=== PATIENT | male | born 1955 | race Native Hawaiian/Other Pacific Islander ===

== ENCOUNTER → 2020-09-12 | Outpatient (CLI) | payer BC ==
--- NOTE | 2020-09-12 13:38 | US ---
EXAMINATION TYPE: US prostate transrectal DATE OF EXAM: 09/12/2020 COMPARISON: NONE CLINICAL HISTORY: R97.2 elevated psa. PSA 7.2ng/ml This examination was performed using the transrectal probe. EXAM MEASUREMENTS: Gland Size: 4.5 x 4.4 x 3.8cm Volume: 40.1ml Predicted PSA: 4.82ng/ml Actual PSA (if available):7.2ng/ml Seminal vesicles slightly bulky on initial images. Heterogeneous enlarged prostate is confirmed. Some tiny cysts noted centrally. No definitive suspicious hypoechoic and/or hypervascular nodule. IMPRESSION: Slightly enlarged prostate gland. No suspicious nodule. Consider prostate MRI and/or ult rasound guided random sampling due to disproportionate actual PSA versus predicted PSA. Predicted PSA = volume x 0.12 ng/ml Calculated Volume = 0.5236 x L x W x H
== END | disposition home or self-care (01) ==
LOC: RADUSWWP 08:10
PROVIDERS: ATTEND Internal Medicine
DX: N40.0 Benign prostatic hyperplasia without lower urinary tract symptoms (principal)
CPT/HCPCS: 76872

== ENCOUNTER → 2020-12-27 | Outpatient (CLI) | payer BC | END | disposition home or self-care (01) | LOC: LABWHC1 11:03 | PROVIDERS: ATTEND Urology | DX: Z01.818 Encounter for other preprocedural examination (principal); C61 Malignant neoplasm of prostate; E11.9 Type 2 diabetes mellitus without complications; I10 Essential (primary) hypertension | CPT/HCPCS: 36415; 86850; 86900; 86901 ==

== ENCOUNTER 2021-01-03 10:25 | Observation (INO) | payer BC ==
[2020-12-27 14:54] VITALS: BMI 28.1
--- NOTE | 2021-01-02 19:33 | P.GSHP ---
History of Present Illness H&P Date: 12/20/20 Chief Complaint: Prostate cancer The patient is a 65-year-old white male evaluated for a rising PSA level. He reports mild obstructive voiding symptoms. His most recent PSA level was 7.2 in August 2020. SHARON revealed an a nodular prostate. He underwent a prostate ultrasound with biopsies. The prostate volume was 28 mL. 4 of 12 biopsies showed [place] 7 (4+3) adenocarcinoma, all on the left side. The Polaris score was high at 4.4. I had a lengthy discussion with the patient, regarding alternative treatment options. He has elected to undergo a robotic-assisted laparoscopic prostatectomy. - Cardiovascular Cardiovascular: Reports high blood pressure - Genitourinary (Male) Genitourinary: Reports as per HPI, Reports erectile dysfunction, Reports nocturia Past Medical History - Past Family History Mother Family Medical History: No Reported History Medications and Allergies Home Medications Medication Instructions Recorded Confirmed Type Atorvastatin [Lipitor] 10 mg PO HS 12/27/20 12/27/20 History Insuln Asp Prt/Insulin Aspart 53 unit SQ 1630 12/27/20 12/27/20 History [NovoLOG MIX 70-30 VIAL] Insuln Asp Prt/Insulin Aspart 78 unit SQ 1200 12/27/20 12/27/20 History [NovoLOG MIX 70-30 VIAL] Vitamin B12 1 injection IM ONCE 12/27/20 12/27/20 History lisinopriL [Zestril] 10 mg PO DAILY 12/27/20 12/27/20 History Allergies Allergy/AdvReac Type Severity Reaction Status Date / Time No Known Allergies Allergy Verified 12/27/20 14:43 Surgical - Exam - General well developed, well nourished, no distress - Respiratory normal respiratory effort - Abdomen Abdomen: soft, non tender, no guarding, no rigid, no rebound - Genitourinary normal penis with no external lesions, testicles non-tender - Rectum Rectum: normal sphincter tone, no masses, other (Prostate mildly enlarged but smooth) - Psychiatric oriented to time, oriented to person, oriented to place, speech is normal, memory intact Assessment and Plan (1) Malignant neoplasm of prostate Status: Acute Code(s): C61 - MALIGNANT NEOPLASM OF PROSTATE SNOMED Code(s): 311598867 Plan: Robotic-assisted laparoscopic prostatectomy with bilateral pelvic lymphadenectomy. The procedure has been reviewed in detail with the patient. He is aware of potential risks, which include anesthesia, bleeding, infection, intestinal injury (which may require a colostomy), ureteral injury, swelling of the penis post-operatively, bladder neck contracture, urethral stricture, lymphocele, post-operative ileus, thrombophlebitis, wound separation, and possible urinary fistula. In addition, I went into great detail concerning the possibility of postop urinary incontinence, which may fail to resolve. The zachary ent has also been advised of the possibility of treatment failure, and the possible need for adjuvant therapy. He reports erectile dysfunction, and thus the decision has been made not to preserve the neurovascular bundles.
[~2021-01-03 10:25] MED LIST: DEXAMETHASONE SOD PHOSPHATE 4 MG/ML 1 ML VIAL IV ONE; HEPARIN SODIUM,PORCINE 5,000 UNIT/ML 1 ML VIAL SQ PRN; HYDROmorphone 0.5 MG/0.5 ML SYRINGE IVP PRN; ONDANSETRON 4 MG/2 ML VIAL IVP ONE
[2021-01-03] MEDS: LACTATED RINGERS 1,000 ML IV SCH (11:25)
[2021-01-03] MEDS ORDERED: LIDOCAINE 1% (10MG/ML) FOR IV START INTRADERMA ONE ×2 (11:25→11:26)
[2021-01-03] MEDS ORDERED: INSULIN ASPART (NovoLOG) 100 UNIT/ML VIAL SQ ONE ×2 (11:36→18:10)
[2021-01-03 11:39] LABS: Glucose,Whole Blood 217 mg/dL (75-99)
[2021-01-03] MEDS ORDERED: MIDAZOLAM 2 MG/2 ML VIAL IVP ONE (11:47)
[2021-01-03] MEDS ORDERED: PROPOFOL 10 MG/ML 20 ML VIAL IV ONE (13:18)
[2021-01-03] MEDS ORDERED: NEOSTIGMINE 1 MG/ML 10 ML VIAL ONE (13:18)
[2021-01-03] MEDS ORDERED: ROCURONIUM 10 MG/ML (5 ML VIAL) IV ONE (13:18)
[2021-01-03] MEDS ORDERED: fentaNYL (PF) 50 MCG/ML 2 ML AMP ONE (13:18)
[2021-01-03] MEDS ORDERED: MIDAZOLAM 2 MG/2 ML VIAL ONE (13:18)
[2021-01-03] MEDS ORDERED: GLYCOPYRROLATE 0.2 MG/ML 2 ML VIAL ONE (13:18)
[2021-01-03] MEDS ORDERED: SUCCINYLCHOLINE CHLORIDE 100 MG/5 ML SYR IV ONE (13:18)
[2021-01-03] MEDS ORDERED: BUPIVACAINE (PF) 0.25% 30 ML VIAL SQ ONE ×2 (13:56→17:30)
--- NOTE | 2021-01-03 17:43 | P.OP ---
Date of Procedure: 01/03/21 Preoperative Diagnosis: Adenocarcinoma of the Prostate Postoperative Diagnosis: Same Procedure(s) Performed: Robotic-assisted Laparoscopic Prostatectomy (RALP) with Bilateral Pelvic Lymphadenectomy Anesthesia: IVY Surgeon: Adarsh Copeland Estimated Blood Loss (ml): 20 IV fluids (ml): 650 Pathology: other (Prostate, seminal vesicles, bilateral pelvic lymph nodes) Condition: stable Disposition: PACU Indications for Procedure: The patient is a 65-year-old white male evaluated for a rising PSA level. He reports mild obstructive voiding symptoms. His most recent PSA level was 7.2 in August 2020. SHARON revealed an a nodular prostate. He underwent a prostate ultrasound with biopsies. The prostate volume was 28 mL. 4 of 12 biopsies showed [place] 7 (4+3) adenocarcinoma, all on the left side. The Polaris score was high at 4.4. I had a lengthy discussion with the patient, regarding alternative treatment options. He has elected to undergo a robotic-assisted laparoscopic prostatectomy. Operative Findings: No evidence of extraprostatic disease. The vas deferens were extremely hard bilaterally. Description of Procedure: The patient was taken in the operating room and placed in the dorsal lithotomy position, with his legs supported in Tong stirrups. He was carefully positioned on a beanbag for stability. The abdomen and external genitalia were prepped and draped sterilely. A Garcia catheter was inserted. The Veress needle was passed through the anterior abdominal wall immediately cephalad to the umbilicus, and insufflation was performed to a pressure of 20 mm Hg. Once ins ufflation was performed, the Veress needle was removed and a supraumbilical incision was made, through which a 12 mm camera port was placed. Under camera guidance, 3 8 mm robotic ports were placed, 2 on the left and one on the right. An additional 12 mm port was placed on the right lateral side for use as an assistant plant control operator port. A 5 mm port was placed to the right of the camera port for suction. The patient was placed in Trendelenburg position, and docking was then performed to the da Elio system utilizing a 4-arm approach. The abdomen was examined. The sigmoid colon was mobilized out of the pelvis. The peritoneum was incised lateral to the medial umbilical ligaments bilaterally, exposing the pubis. The peritoneum was then incised across the midline, allowing the bladder flap to be taken down. The endopelvic fascia was opened bilaterally, and muscular attachments from the urogenital diaphragm were swept away from the prostate. Bilateral pelvic lymphadenectomies were performed in the standard fashion. The peritoneal incisions were extended in a cephalad direction, and the vas deferens were divided bilaterally. Margins of dissection were the bifurcation of the iliac vessels proximally, the circumflex iliac vein distally, the external iliac artery laterally, and the obturator nerve medially. A combination of sharp and blunt dissection was used. Care was taken to avoid any neurovascular injury, and the use of monopolar electrocautery was avoided immediately adjacent to neurovascular structures. The lymphatic package was clipped distally. No enlarged lymph nodes were encountered. There were no complications. The vesical neck was incised transversely, down to the lumen. The Garcia catheter was brought out through the anterior vesical neck incision and was used for traction. The posterior aspect of the vesical neck was incised, such that the full-thickness of the vesical neck was divided. The anterior layer of the Denonvilliers fascia was incised, exposing the vas deferens. Each were isolated and divided. Both were difficult to divide because they were very hard, with the consistency of wood. Next, each of the seminal vesicles were dissected away from adjacent tissues, and vascular attachments were cauterized and divided. The posterior leaf of Denonvilliers fascia was incised transversely, allowing entry into the plane between the prostate and rectum. With lateral spreading, this plane was developed down to the apex. This exposed the lateral vascular pedicles bilaterally. These were clipped and divided in an antegrade fashion, down to the apex. The neurovascular bundles were not preserved. The remaining apical attachments were swept away from the prostate. The dorsal venous complex was incised, as well as periurethral tissue. At this point, only the urethra remained intact. This was transected immediately distal to the prostatic apex using cold scissors. The specimen was placed within a specimen bag. The dorsal venous complex was sutured using a V-Loc suture in a running fashion. The suture was passed through the periosteum of the pubis periurethral support. A second V-Loc suture was then used to place the Venkat stitch, incorporating the rhabdosphincter and the edge of Denonvilliers fascia. This allowed the bladder to be taken down to the urethra, leaving the vesical neck immediately adjacent to the urethra. The vesicourethral anastomosis was then performed using a V-Loc suture in a running fashion. After completing the anastomosis, an 18-Amharic Garcia catheter was placed and approximately 150 mL of 0.9 normal saline were instilled into the bladder. No extravasation of irrigant from the vesicourethral anastomosis was noted. Hemostasis was noted at this time to be excellent, and it was thus felt that a drain was unnecessary. Surgicel was placed over the vascular pedicles bilaterally. Tisseel was sprayed into the pelvis over the vascular pedicles, dorsal vein, and vesicourethral anastomosis. The patient was returned to the supine position. Undocking was performed, and the specimen bag sutures were passed through the camera port. After removing all the ports and allowing all of the CO2 to be released from the peritoneal cavity, the camera port incision was enlarged to allow removal of the surgical specimen. The fascia of this incision was then closed using 0-PDS suture in a running fashion. Each of the skin incisions were then closed using 4-0 Monocryl suture in a subcuticular fashion. Marcaine was injected at each of the incision sites. Dermabond was applied to each incision. The Garcia catheter was connected to gravity drainage. All sponge and needle counts were correct. The patient tolerated the procedure well was taken to the recovery room in stable condition.
[2021-01-03] MEDS ORDERED: ACETAMINOPHEN TAB 325 MG TAB PO PRN (17:47)
[2021-01-03] MEDS ORDERED: HYDROmorphone 1 MG/ML 1 ML SYRINGE IVP PRN (17:47)
[2021-01-03] MEDS ORDERED: ONDANSETRON 4 MG/2 ML VIAL IVP PRN (17:47)
[2021-01-03] MEDS ORDERED: MAG HYDROX/AL HYDROX/SIMETH 30 ML CUP PO PRN (17:47)
[2021-01-03] MEDS ORDERED: SODIUM CHLORIDE 0.9% 1,000 ML IV SCH (18:00)
[2021-01-03 18:06] LABS: Glucose,Whole Blood 249 mg/dL (75-99)
[2021-01-03 18:55] LABS: Glucose,Whole Blood 248 mg/dL (75-99)
[2021-01-03] MEDS: KETOROLAC 15 MG/ML 1 ML VIAL IVP PRN (19:43)
[2021-01-03] MEDS: SODIUM CHLORIDE 0.9% 1,000 ML IV SCH (19:44)
[2021-01-03 20:31] LABS: Glucose,Whole Blood 192 mg/dL (75-99)
[2021-01-03] MEDS: INSULIN ASPART (NovoLOG) 100 UNIT/ML VIAL SQ SCH (20:42)
[2021-01-03] MEDS ORDERED: ATORVASTATIN 10 MG TAB PO SCH (21:00)
[2021-01-03] MEDS: HEPARIN SODIUM,PORCINE 5,000 UNIT/ML 1 ML VIAL SQ SCH (23:06)
[2021-01-04] MEDS: LACTATED RINGERS 1,000 ML IV SCH (05:40)
[2021-01-04] MEDS: SODIUM CHLORIDE 0.9% 1,000 ML IV SCH (05:40)
[2021-01-04 07:13] LABS: Glucose,Whole Blood 345 mg/dL (75-99)
[2021-01-04 07:52] VITALS: BP 169/70; PULSE 67; RESP 17; TEMP 98.4
[2021-01-04] MEDS: INSULIN ASPART (NovoLOG) 100 UNIT/ML VIAL SQ SCH ×2 (08:05→12:05)
[2021-01-04] MEDS: HEPARIN SODIUM,PORCINE 5,000 UNIT/ML 1 ML VIAL SQ SCH (08:05)
[2021-01-04] MEDS: KETOROLAC 15 MG/ML 1 ML VIAL IVP PRN (08:06)
[2021-01-04] MEDS ORDERED: lisinopriL 10 MG TAB PO SCH (09:00)
--- NOTE | 2021-01-04 09:28 | P.DS ---
Providers Date of admission: 01/04/21 08:34 Attending physician: Adarsh Copeland Primary care physician: [facility] Course: The patient is 65. He underwent a robotic-assisted radical prostatectomy by 01/03/21. He did well overnight. His vital signs are stable. His urine output is good. His abdomen is soft. The wounds look good. His pain is under control. He is tolerating food. Eating. He wishes to go home. He'll be discharged home with an indwelling catheter. He'll follow-up with in 01/15/2021. He is given a prescription for Toradol and Cipro on discharge. His condition is good. Postoperative instructions of been given. Pathology report is pending. Patient Condition at Discharge: Good Plan - Discharge Summary Discharge Rx Participant: No New Discharge Prescriptions: New Ciprofloxacin HCl [Cipro] 250 mg PO Q12HR #6 tablet Ketorolac [Toradol] 10 mg PO Q6HR PRN #12 tab PRN Reason: Moderate To Severe Pain No Action lisinopriL [Zestril] 10 mg PO DAILY Atorvastatin [Lipitor] 10 mg PO HS Insuln Asp Prt/Insulin Aspart [NovoLOG MIX 70-30 VIAL] 53 unit SQ 1630 Insuln Asp Prt/Insulin Aspart [NovoLOG MIX 70-30 VIAL] 78 unit SQ 1200 Vitamin B12 1 injection IM ONCE Discharge Medication List Atorvastatin [Lipitor] 10 mg PO HS 12/27/20 [History] Insuln Asp Prt/Insulin Aspart [NovoLOG MIX 70-30 VIAL] 53 unit SQ 1630 12/27/20 [History] Insuln Asp Prt/Insulin Aspart [NovoLOG MIX 70-30 VIAL] 78 unit SQ 1200 12/27/20 [History] Vitamin B12 1 injection IM ONCE 12/27/20 [History] lisinopriL [Zestril] 10 mg PO DAILY 12/27/20 [History] Ciprofloxacin HCl [Cipro] 250 mg PO Q12HR #6 tablet 01/03/21 [Rx] Ketorolac [Toradol] 10 mg PO Q6HR PRN #12 tab 01/03/21 [Rx] Follow up Appointment(s)/Referral(s): Adarsh Copeland MD [STAFF PHYSICIAN] - 01/15/21 Activity/Diet/Wound Care/Special Instructions: Discharge home with Garcia catheter. Instruct patient to use overnight drainage bag as well as urinary leg bag. Okay to shower. Diet as tolerated. No lifting, driving, or strenuous activity. Reassure patient that abdominal wall ecchymosis and penoscrotal swelling are normal. Instruct patient to begin taking antibiotics one day prior to Garcia catheter removal. Discharge Disposition: HOME SELF-CARE
[2021-01-04 11:20] LABS: Glucose,Whole Blood >600 mg/dL (75-99)
[2021-01-04 11:20] LABS: Glucose,Whole Blood 499 mg/dL (75-99)
[2021-01-04] MEDS ORDERED: INSULIN ASPART (NovoLOG) 100 UNIT/ML VIAL SQ ONE (11:34)
== END 2021-01-04 12:07 | disposition home or self-care (01) ==
LOC: OR 10:25 → 4SSUR 17:47 → OR 01-04 08:17 → 4SSUR 01-04 08:34
PROVIDERS: ADMIT Urology; ATTEND Urology
DX: C61 Malignant neoplasm of prostate (principal); N13.9 Obstructive and reflux uropathy, unspecified; N52.9 Male erectile dysfunction, unspecified; I10 Essential (primary) hypertension; E11.9 Type 2 diabetes mellitus without complications; F17.200 Nicotine dependence, unspecified, uncomplicated; Z79.899 Other long term (current) drug therapy; Z79.4 Long term (current) use of insulin
CPT/HCPCS: 84132; 88307; 88309; 88311; 55866; 38571; G0378; J2250; J1644 ×2; J2710; J0690; J2405; J3010; J1885 ×2; J0330; J2704; 36415; 86850; 86900; 86901

== ENCOUNTER 2021-01-12 11:00 | Emergency (ER) | payer BC ==
[2021-01-12 11:09] VITALS: BP 174/71; PULSE 77; RESP 18; TEMP 97.8
--- NOTE | 2021-01-12 11:44 | ED ---
Male Urogenital HPI - General Chief complaint: Urogenital Stated complaint: Problems urinating, Catheter Time Seen by Provider: 01/12/21 11:10 Source: patient Mode of arrival: ambulatory Limitations: no limitations - History of Present Illness Initial comments: 65-year-old male presents to the emergency department with chief complaint of urinary retention. Patient reports undergoing a prostatectomy 2 days ago and has had a Garcia catheter that has been otherwise drinking well. Patient reports he has not been draining at all since this morning around 6 AM. Patient also reports some pressure over the bladder. States the ecchymosis and bloating in the abdomen have been consistently staying the same. Patient also reports some scrotal swelling that is not tender. States he spoke with this morning who advised us to call him "before doing anything". She denies chest pain or shortness of breath. Denies fevers or chills. - Related Data Home Medications Medication Instructions Recorded Confirmed Atorvastatin [Lipitor] 10 mg PO HS 12/27/20 01/12/21 Insuln Asp Prt/Insulin Aspart 53 unit SQ HS@1630 12/27/20 01/12/21 [NovoLOG MIX 70-30 VIAL] Insuln Asp Prt/Insulin Aspart 78 unit SQ DAILY@1200 12/27/20 01/12/21 [NovoLOG MIX 70-30 VIAL] lisinopriL [Zestril] 10 mg PO DAILY 12/27/20 01/12/21 Allergies Allergy/AdvReac Type Severity Reaction Status Date / Time No Known Allergies Allergy Verified 01/12/21 12:08 Review of Systems ROS Statement: Those systems with pertinent positive or pertinent negative responses have been documented in the HPI. ROS Other: All systems not noted in ROS Statement are negative. Past Medical History Past Medical History: Diabetes Mellitus, Hyperlipidemia, Hypertension, Prostate Disorder History of Any Multi-Drug Resistant Organisms: None Reported Past Surgical History: Prostate Surgery Past Psychological History: No Psychological Hx Reported Smoking Status: Current some day smoker Past Alcohol Use History: None Reported Past Drug Use History: None Reported General Exam Limitations: no limitations General appearance: alert, in no apparent distress Head exam: Present: atraumatic, normocephalic, normal inspection Eye exam: Present: normal appearance, PERRL, EOMI Pupils: Present: normal accommodation ENT exam: Present: normal exam, normal oropharynx, mucous membranes moist Neck exam: Present: normal inspection, full ROM. Absent: tenderness, meningismus Respiratory exam: Present: normal lung sounds bilaterally. Absent: respiratory distress Cardiovascular Exam: Present: regular rate, normal rhythm, normal heart sounds GI/Abdominal exam: Present: soft (Ecchymosis along the lower abdomen. Incision sites are healing well. No signs of infection at this time), tenderness (Tende rness over the bladder.). Absent: distended, guarding, rebound, rigid exam: Present: scrotal swelling. Absent: testicular tenderness Extremities exam: Present: normal inspection, full ROM, normal capillary refill. Absent: tenderness Back exam: Present: normal inspection, full ROM. Absent: tenderness Neurological exam: Present: alert, oriented X3 Psychiatric exam: Present: normal affect, normal mood Skin exam: Present: warm, dry, intact, normal color Course Vital Signs 01/12/21 11:05 Temperature 97.8 F Pulse Rate 77 Respiratory 18 Rate Blood Pressure 174/71 O2 Sat by Pulse 99 Oximetry Medical Decision Making - Medical Decision Making 65-year-old male presents to the emergency department with a chief complaint of urinary retention due to a malfunctioning catheter. I contacted . He came in personally saw the patient and was able to resolve the issue with the malfunctioning Garcia. He cleared the patient for discharge. Case discussed with Dr. Osei. Disposition Clinical Impression: Malfunction of Garcia catheter Disposition: HOME SELF-CARE Condition: Stable Instructions (If sedation given, give patient instructions): Garcia Catheter Placement and Care (ED) Additional Instructions: Please return to the Emergency Department if symptoms worsen or any other concerns. Is patient prescribed a controlled substance at d/c from ED?: No Referrals: Adarsh Copeland MD [Primary Care Provider] - 1-2 days Time of Disposition: 13:03
--- NOTE | 2021-01-12 13:19 | P.GSCN ---
History of Present Illness Consult date: 01/12/21 Reason for Consult: Garcia catheter not draining Requesting physician: Hank Greene History of present illness: The patient is a 65-year-old white male well known to me. He underwent a robotic-assisted laparoscopic prostatectomy on 01/03/2021. He has been bothered by constipation but is otherwise recovering well. His Garcia catheter quit draining this morning approximately 6 AM. He feels an urge to void but denies abdominal pain. Pathologically, there was evidence of extraprostatic extension of his cancer, but surgical margins were negative. Review of Systems - Constitutional Denies chills, Denies fever - Gastrointestinal Reports constipation, Denies abdominal pain Past Medical History Past Medical History: Diabetes Mellitus, Hyperlipidemia, Hypertension, Prostate Disorder History of Any Multi-Drug Resistant Organisms: None Reported Past Surgical History: Prostate Surgery Past Psychological History: No Psychological Hx Reported Smoking Status: Current some day smoker Past Alcohol Use History: None Reported Past Drug Use History: None Reported Medications and Allergies Home Medications Medication Instructions Recorded Confirmed Type Atorvastatin [Lipitor] 10 mg PO HS 12/27/20 01/12/21 History Insuln Asp Prt/Insulin Aspart 53 unit SQ HS@1630 12/27/20 01/12/21 History [NovoLOG MIX 70-30 VIAL] Insuln Asp Prt/Insulin Aspart 78 unit SQ DAILY@1200 12/27/20 01/12/21 History [NovoLOG MIX 70-30 VIAL] lisinopriL [Zestril] 10 mg PO DAILY 12/27/20 01/12/21 History Ciprofloxacin HCl [Cipro] 250 mg PO Q12HR #6 tablet 01/12/21 Rx Allergies Allergy/AdvReac Type Severity Reaction Status Date / Time No Known Allergies Allergy Verified 01/12/21 12:08 Surgical - Exam Vital Signs Temp Pulse Resp BP Pulse Ox 97.8 F 77 18 174/71 99 01/12/21 11:05 01/12/21 11:05 01/12/21 11:05 01/12/21 11:05 01/12/21 11:05 - General well developed, well nourished, no distress - Respiratory normal respiratory effort - Abdomen Soft, non-distended. Significant abdominal wall ecchymosis is noted. There is no abdominal tenderness. The incisions are healing well. - Genitourinary normal penis with no external lesions, testicles non-tender - Psychiatric oriented to time, oriented to person, oriented to place, speech is normal, memory intact Assessment and Plan (1) Malignant neoplasm of prostate Current Visit: No Status: Acute Code(s): C61 - MALIGNANT NEOPLASM OF PROSTATE SNOMED Code(s): 714668700 (2) Malfunction of Garcia catheter Current Visit: Yes Status: Acute Code(s): T83.011A - BREAKDOWN (MECHANICAL) OF INDWELLING URETHRAL CATHETER, INIT SNOMED Code(s): 542517434 Plan: I irrigated the Garcia catheter. It was plugged and subsequently drained well. He has an appointment scheduled to follow-up in the office tomorrow, at which time the Garcia catheter was to be removed. Therefore, I removed the catheter and advised him to perform Kegel exercises. Ciprofloxacin was prescribed, and he was advised to begin taking it today. He was instructed to contact my office and cancel his appointment for tomorrow, and he will be seen in 2-3 weeks.
== END 2021-01-12 13:22 | disposition home or self-care (01) ==
LOC: EC 11:00
DX: T83.011A Breakdown (mechanical) of indwelling urethral catheter, initial encounter (principal); C61 Malignant neoplasm of prostate; E11.9 Type 2 diabetes mellitus without complications; I10 Essential (primary) hypertension; E78.5 Hyperlipidemia, unspecified; F17.200 Nicotine dependence, unspecified, uncomplicated; Z79.4 Long term (current) use of insulin
CPT/HCPCS: 99283

== ENCOUNTER 2021-01-15 09:12 | Emergency (ER) | payer BC ==
[2021-01-15 09:18] VITALS: RESP 18; TEMP 97.6
--- NOTE | 2021-01-15 10:01 | XR ---
KUB HISTORY: Constipation and genital swelling Frontal KUB submitted on 2 images No comparisons Lung bases are clear. There is a spinal curvature, degenerative disc change in the visualized spine. Probable vas deferens calcification, vascular opacification within the pelvis. There is no bowel dist ention. No pneumoperitoneum. IMPRESSION: Nonobstructive bowel gas pattern.
--- NOTE | 2021-01-15 10:13 | ED ---
Male Urogenital HPI - General Source: patient, RN notes reviewed Mode of arrival: ambulatory Limitations: no limitations - History of Present Illness MD Complaint: testicle swelling, other (Prostatectomy on January 03, Garcia catheter removed on Saturday 01/13) -: days(s) (3-5) Location: right testicle, left testicle Radiation: other (pain in back when sitting) Severity scale (1-10): 5 Consistency: intermittent Improves with: other (standing and bending over) Worsens with: other (sitting) recent surgery Reports: other (constipation) <Aubrey Cleaning - Last Filed: 01/15/21 12:03> <Trang Sue - Last Filed: 01/21/21 23:38> - General Chief complaint: Urogenital Stated complaint: revisit - male Time Seen by Provider: 01/15/21 09:22 - History of Present Illness Initial comments: 65-year-old white male patient presents with family member complaining of testicular swelling status post prostatectomy by Dr. Perez on January 03, patient had Garcia catheter removed on 01/13. Patient states had bowel movement on Wednesday which were "nugget" like stool, liquid stool on Wednesday, and no bowel movement today. Patient standing in the room, states pain radiates to back when he tries to sit related to the testicular swelling feels better when he stands or bends over. Patient denies hematuria. Family states called the office and was told to have emergency room call the office for further orders. (Aubrey Cleaning) - Related Data Home Medications Medication Instructions Recorded Confirmed Atorvastatin [Lipitor] 10 mg PO HS 12/27/20 01/18/21 Insuln Asp Prt/Insulin Aspart 53 unit SQ HS@1630 12/27/20 01/18/21 [NovoLOG MIX 70-30 VIAL] Insuln Asp Prt/Insulin Aspart 78 unit SQ DAILY@1200 12/27/20 01/18/21 [NovoLOG MIX 70-30 VIAL] lisinopriL [Zestril] 10 mg PO DAILY 12/27/20 01/18/21 Previous Rx's Medication Instructions Recorded Sulfamethox-Tmp 800-160Mg [Bactrim 1 tab PO Q12HR #20 tab 01/15/21 DS 800-160 mg] Allergies Allergy/AdvReac Type Severity Reaction Status Date / Time No Known Allergies Allergy Verified 01/18/21 10:20 Review of Systems ROS Other: All systems not noted in ROS Statement are negative. <leathaAubrey - Last Filed: 01/15/21 12:03> ROS Other: All systems not noted in ROS Statement are negative. <Trang Sue - Last Filed: 01/21/21 23:38> ROS Statement: Those systems with pertinent positive or pertinent negative responses have been documented in the HPI. Past Medical History Past Medical History: Diabetes Mellitus, Hyperlipidemia, Hypertension, Prostate Disorder Additional Past Medical History / Comment(s): prostate cancer, low vitamin b 12, History of Any Multi-Drug Resistant Organisms: None Reported Past Surgical History: Prostate Surgery Past Anesthesia/Blood Transfusion Reactions: No Reported Reaction Additional Past Anesthesia/Blood Transfusion Reaction / Comment(s): never had anesthesia Past Psychological History: No Psychological Hx Reported Smoking Status: Current some day smoker Past Alcohol Use History: None Reported Past Drug Use History: None Reported - Past Family History Mother Family Medical History: No Reported History <Aubrey Cleaning - Last Filed: 01/15/21 12:03> General Exam Limitations: no limitations General appearance: alert, in no apparent distress Head exam: Present: atraumatic, normocephalic, normal inspection Eye exam: Present: normal appearance, PERRL, EOMI. Absent: scleral icterus, conjunctival injection, periorbital swelling ENT exam: Present: normal exam Neck exam: Present: normal inspection. Absent: tenderness, meningismus, lymphadenopathy Respiratory exam: Present: normal lung sounds bilaterally. Absent: respiratory distress, wheezes, rales, rhonchi, stridor Cardiovascular Exam: Present: regular rate, normal rhythm, normal heart sounds. Absent: systolic murmur, diastolic murmur, rubs, gallop, clicks GI/Abdominal exam: Present: distended, normal bowel sounds, other (red ecchymosis with well approximated incisions, no drainage or s/s of infection. ) exam: Present: scrotal swelling, other (urine leaking). Absent: testicular tenderness External exam: Absent: erythema, lesions, lacerations Neurological exam: Present: alert, oriented X3, CN II-XII intact Psychiatric exam: Present: normal affect, normal mood Skin exam: Present: warm, dry, intact, normal color. Absent: rash <Riske,Aubrey - Last Filed: 01/15/21 12:03> Course <Aubrey Cleaning - Last Filed: 01/15/21 12:03> Vital Signs 01/15/21 01/15/21 09:14 12:40 Temperature 97.6 F Pulse Rate 68 80 Respiratory 18 18 Rate Blood Pressure 166/67 142/69 O2 Sat by Pulse 100 99 Oximetry - Reevaluation(s) Reevaluation #1: 01/15/21 09:[address] Griffiths hit O9 45 discussed patient with him, not known to him. Suggest bladder scan and normal evaluate for constipation, if Retention place Garcia catheter (Aubrey Cleaning) Reevaluation #2: 01/15/21 11:05 Bladder scan shows 0 urine. Patient with urinary leakage in room. will assess UA for infection prior to Discharge (Aubrey Cleaning) Medical Decision Making <Aubrey Cleaning - Last Filed: 01/15/21 12:03> <Trang Sue - Last Filed: 01/21/21 23:38> - Medical Decision Making KUB x-ray negative for obstruction or pneumoperitoneum. Patient without hematuria, nausea vomiting or diarrhea. Urine draining from penis, patient wearing depends. Bladder scan 0. Testicles swollen but not red or painful. Patient well-appearing and is appointment in 3 weeks to follow up with Dr. Copeland. UA shows large leukocytes, WBCs 64, RBCs of 3, will treat with Bactrim. (Aubrey Cleaning) I was available for consultation in the emergency department. The history and physical exam were done by the midlevel provider. I was consulted for this patients care. I reviewed the case with the midlevel provider and based on their presentation of the patient, I agree with the assessment, medical decision making and plan of care as documented. Chart was dictated using [employer] dictation software. Attempts were made to correct any dictation errors however some typographical errors may persist. (Trang Sue) - Lab Data Lab Results 01/15/21 Range/Units 11:10 Urine Color Light Yellow Urine Appearance Clear (Clear) Urine pH 7.0 (5.0-8.0) Ur Specific Norman 1.004 (1.001-1.035) Urine Protein Negative (Negative) Urine Glucose (UA) Negative (Negative) Urine Ketones Negative (Negative) Urine Blood Moderate H (Negative) Urine Nitrite Negative (Negative) Urine Bilirubin Negative (Negative) Urine Urobilinogen <2.0 (<2.0) mg/dL Ur Leukocyte Esterase Large H (Negative) Urine RBC 3 (0-5) /hpf Urine WBC 64 H (0-5) /hpf Ur Squamous Epith Cells 1 (0-4) /hpf Hyaline Casts 1 (0-2) /lpf Disposition Is patient prescribed a controlled substance at d/c from ED?: No Time of Disposition: 12:08 <Aubrey Cleaning - Last Filed: 01/15/21 12:03> <Trang Sue - Last Filed: 01/21/21 23:38> Clinical Impression: UTI (urinary tract infection), Malignant neoplasm of prostate Disposition: HOME SELF-CARE Condition: Good Instructions (If sedation given, give patient instructions): Urinary Tract Infection in Men (ED) Additional Instructions: Take the antibiotic, Bactrim , as prescribed and follow up with Dr. Copeladn within 1 week Prescriptions: Sulfamethox-Tmp 800-160Mg [Bactrim DS 800-160 mg] 1 tab PO Q12HR #20 tab Referrals: Allie Rose MD [Primary Care Provider] - 1-2 days Adarsh Copeland MD [STAFF PHYSICIAN] - 1-2 days
[2021-01-15 11:48] LABS: Appearance,Urine Clear (Clear); Bilirubin,Urine Negative (Negative); Blood,Urine Moderate (Negative); Color,Urine Light Yellow; Glucose,Urine (UA) Negative (Negative); Hyaline Casts,Urine 1 /lpf (0-2); Ketones,Urine Negative (Negative); Leukocyte Esterase,Urine Large (Negative); Nitrite,Urine Negative (Negative); Protein,Urine Negative (Negative); RBC,Urine 3 /hpf (0-5); Specific Gravity,Urine 1.004 (1.001-1.035); Squamous Epithelial Cell,Urine 1 /hpf (0-4); Urobilinogen,Urine <2.0 mg/dL (<2.0); WBC,Urine 64 /hpf (0-5)
[2021-01-15 12:41] VITALS: PULSE 80
[2021-01-15 12:42] VITALS: BP 142/69
== END 2021-01-15 12:42 | disposition home or self-care (01) ==
LOC: EC 09:12
DX: C61 Malignant neoplasm of prostate (principal); N39.0 Urinary tract infection, site not specified; I10 Essential (primary) hypertension; E78.5 Hyperlipidemia, unspecified; E11.9 Type 2 diabetes mellitus without complications; F17.200 Nicotine dependence, unspecified, uncomplicated; Z79.899 Other long term (current) drug therapy; Z79.4 Long term (current) use of insulin; Z90.79 Acquired absence of other genital organ(s)
CPT/HCPCS: 74018; 81001; 87086; 99283

== ENCOUNTER 2021-01-18 09:22 | Emergency (ER) | payer BC ==
[2021-01-18 09:38] VITALS: TEMP 98.3
--- NOTE | 2021-01-18 10:11 | XR ---
KUB HISTORY: Constipation. COMPARISON: None. TECHNIQUE: Upright AP view the abdomen was obtained. FINDINGS: The lung bases are clear. There is no free intraperitoneal air. Bowel gas pattern is nonspecific and there is no evidence of obstruction. There are no suspicious abd ominal calcifications There are mild degenerative changes in lumbar spine and there is mild scoliosis. No focal intraosseou s abnormalities.. IMPRESSION: Nonspecific abdomen without evidence of free air or obstruction.
--- NOTE | 2021-01-18 10:12 | ED ---
General Adult HPI - General Chief complaint: Abdominal Pain Stated complaint: Constipation Time Seen by Provider: 01/18/21 09:54 Source: patient, RN notes reviewed, old records reviewed Mode of arrival: ambulatory Limitations: no limitations - History of Present Illness Initial comments: 65-year-old male with chief complaint of constipation. States that he had a bowel movement approximately 2 days ago which was quite small and hard. He's begun with constipation for the past several weeks after he had robotic-assisted laparoscopic prostatectomy on [place] with Dr. Copeland. Patient denies fever. He denies significant abdominal pain. His pain is predominantly in his rectum. He's tried multiple laxatives with minimal to no stool output. Early on antibiotics for urinary tract infection. - Related Data Home Medications Medication Instructions Recorded Confirmed Atorvastatin [Lipitor] 10 mg PO HS 12/27/20 01/18/21 Insuln Asp Prt/Insulin Aspart 53 unit SQ HS@1630 12/27/20 01/18/21 [NovoLOG MIX 70-30 VIAL] Insuln Asp Prt/Insulin Aspart 78 unit SQ DAILY@1200 12/27/20 01/18/21 [NovoLOG MIX 70-30 VIAL] lisinopriL [Zestril] 10 mg PO DAILY 12/27/20 01/18/21 Previous Rx's Medication Instructions Recorded Sulfamethox-Tmp 800-160Mg [Bactrim 1 tab PO Q12HR #20 tab 01/15/21 DS 800-160 mg] Allergies Allergy/AdvReac Type Severity Reaction Status Date / Time No Known Allergies Allergy Verified 01/18/21 10:20 Review of Systems ROS Statement: Those systems with pertinent positive or pertinent negative responses have been documented in the HPI. ROS Other: All systems not noted in ROS Statement are negative. Past Medical History Past Medical History: Diabetes Mellitus, Hyperlipidemia, Hypertension, Prostate Disorder Additional Past Medical History / Comment(s): prostate cancer, low vitamin b 12, History of Any Multi-Drug Resistant Organisms: None Reported Past Surgical History: Prostate Surgery Past Anesthesia/Blood Transfusion Reactions: No Reported Reaction Additional Past Anesthesia/Blood Transfusion Reaction / Comment(s): never had anesthesia Past Psychological History: No Psychological Hx Reported Smoking Status: Current some day smoker Past Alcohol Use History: None Reported Past Drug Use History: None Reported - Past Family History Mother Family Medical History: No Reported History General Exam Limitations: no limitations General appearance: alert, in no apparent distress Head exam: Present: atraumatic, normocephalic Eye exam: Present: normal appearance, PERRL ENT exam: Present: normal exam Neck exam: Present: normal inspection. Absent: tenderness, meningismus Respiratory exam: Present: normal lung sounds bilaterally. Absent: respiratory distress, wheezes Cardiovascular Exam: Present: regular rate, normal rhythm GI/Abdominal exam: Present: soft, other (Anterior abdominal wall ecchymosis, surgical incisions are well healing.). Absent: distended, tenderness, guarding, rebound Extremities exam: Present: normal inspection, normal capillary refill. Absent: pedal edema Neurological exam: Present: alert, oriented X3, CN II-XII intact. Absent: motor sensory deficit Psychiatric exam: Present: normal affect, normal mood Skin exam: Present: warm, dry, intact. Absent: cyanosis, diaphoretic Course Vital Signs 01/18/21 09:34 Temperature 98.3 F Pulse Rate 64 Respiratory 18 Rate Blood Pressure 142/69 O2 Sat by Pulse 100 Oximetry Medical Decision Making - Medical Decision Making 65-year-old male presenting with constipation in the 2 weeks postop prostatectomy. Patient is well-appearing, afebrile with stable vitals. He has no abdominal tenderness. X-ray performed which is negative for obstruction, there is some stool in the ascending and transverse colon. He is given an enema in the emergency department with minimal relief. I did discuss case with Dr. Tunde barrett for urology who is familiar with this patient. Ultimately was agree that the patient can continue to manage this issue as an outpatient no need for further testing or evaluation at this time. Patient will continue MiraLAX and Colace at home. He will increase his fluid as well as fiber content in his diet. Disposition Clinical Impression: Constipation Disposition: HOME SELF-CARE Condition: Good Instructions (If sedation given, give patient instructions): Constipation (ED) Additional Instructions: Please continue Colace and MiraLAX at home. Please drink plenty fluids and increase fiber intake in your diet. Is patient prescribed a controlled substance at d/c from ED?: No Referrals: Allie Rose MD [Primary Care Provider] - 1-2 days Adarsh Copeland MD [STAFF PHYSICIAN] - 1-2 days Time of Disposition: 11:28
[2021-01-18] MEDS ORDERED: DOCUSATE 283 MG/5 ML ENEMA RECTAL STA (10:16)
[2021-01-18 11:48] VITALS: BP 136/69; PULSE 76; RESP 20
== END 2021-01-18 11:48 | disposition home or self-care (01) ==
LOC: EC 09:22
DX: K59.00 Constipation, unspecified (principal); R10.9 Unspecified abdominal pain; E11.9 Type 2 diabetes mellitus without complications; I10 Essential (primary) hypertension; E53.8 Deficiency of other specified B group vitamins; E78.5 Hyperlipidemia, unspecified; Z85.46 Personal history of malignant neoplasm of prostate; Z79.4 Long term (current) use of insulin
CPT/HCPCS: 74018; 99284

== ENCOUNTER → 2021-08-12 | Outpatient (CLI) | payer OTHER | END | disposition home or self-care (01) | LOC: LABWHC1 12:05 | PROVIDERS: ATTEND Urology | DX: C61 Malignant neoplasm of prostate (principal) | CPT/HCPCS: 36415; 84153 ==

== ENCOUNTER → 2021-12-26 | Outpatient (CLI) | payer OTHER ==
[2021-12-26 17:46] LABS: ALT 19 U/L (10-49); AST 13 U/L (14-35); Albumin/Globulin Ratio 1.67 (1.60-3.17); Alkaline Phosphatase 123 U/L (41-126); Bilirubin,Unconjugated 0.37 mg/dL (0.20-1.00); Chol/HDL Ratio 3.12 Ratio; Globulin 2.4 g/dL (1.6-3.3); LDL Cholesterol,Calculated 57.6 mg/dL (0.0-131.0); Total Protein 6.4 g/dL (6.2-8.2)
[2021-12-26 17:56] LABS: Prostate Specific Antigen <0.01 ng/mL (0.00-4.50)
== END | disposition home or self-care (01) ==
LOC: LABWHC1 09:29
PROVIDERS: ATTEND Urology
DX: C61 Malignant neoplasm of prostate (principal); E78.5 Hyperlipidemia, unspecified; E11.9 Type 2 diabetes mellitus without complications
CPT/HCPCS: 36415; 80061; 80076; 83036; 84153

== ENCOUNTER 2022-04-12 15:50 | Observation (INO) | payer OTHER ==
[2022-04-12 16:10] LABS: Glucose,Whole Blood 78 mg/dL (75-99)
--- NOTE | 2022-04-12 16:24 | ED ---
Neuro HPI - General Chief Complaint: Neuro Symptoms/Deficit Stated Complaint: R arm numbness/face numb Time Seen by Provider: 04/12/22 16:09 Source: patient, RN notes reviewed Mode of arrival: wheelchair Limitations: no limitations - History of Present Illness Is the patient presenting with stroke symptoms?: No Initial Comments: 66-year-old male with a history of diabetes hypertension hyperlipidemia and prostate cancer in the past who states he had the onset around 7 AM this morning of right facial numbness also some right upper arm numbness. He states when he woke up around 5 AM he had some feeling as if his right leg went to sleep this seems to go away. He states the numbness actually is improving in the face. He points to the face just lateral to the [place] on the right. He denies any focal weakness headache dizziness blurry vision he does state he follow-up analysis morning however. Now he feels as if he is back to normal. He also admits he is recently been doing a lot of lifting. He is left-hand dominant. No other complaints or modifying factors at this time - Related Data Home Medications: Home Medications Medication Instructions Recorded Confirmed Atorvastatin [Lipitor] 10 mg PO HS 12/27/20 04/12/22 Insuln Asp Prt/Insulin Aspart 70 unit SQ HS 12/27/20 04/12/22 [NovoLOG MIX 70-30 VIAL] Insuln Asp Prt/Insulin Aspart 90 unit SQ DAILY 12/27/20 04/12/22 [NovoLOG MIX 70-30 VIAL] lisinopriL [Zestril] 10 mg PO DAILY 12/27/20 04/12/22 Cyanocobalamin [Vitamin B-12] 500 mcg PO DAILY 04/12/22 04/12/22 Allergies/Adverse Reactions: Allergies Allergy/AdvReac Type Severity Reaction Status Date / Time No Known Allergies Allergy Verified 04/12/22 17:41 Review of Systems ROS Statement: Those systems with pertinent positive or pertinent negative responses have been documented in the HPI. ROS Other: All systems not noted in ROS Statement are negative. General Exam - General Exam Comments Initial Comments: This is a well-developed well-nourished awake alert oriented 4 male Limitations: no limitations General appearance: alert, in no apparent distress Head exam: Present: atraumatic, normocephalic, normal inspection Eye exam: Present: normal appearance, PERRL, EOMI. Absent: scleral icterus, conjunctival injection, periorbital swelling ENT exam: Present: normal exam, mucous membranes moist Neck exam: Present: normal inspection, full ROM, other (No stridor JVD or bruits). Absent: tenderness, meningismus, lymphadenopathy Respiratory exam: Present: normal lung sounds bilaterally. Absent: respiratory distress, wheezes, rales, rhonchi, stridor Cardiovascular Exam: Present: regular rate, normal rhythm, normal heart sounds. Absent: systolic murmur, diastolic murmur, rubs, gallop, clicks GI/Abdominal exam: Present: soft, normal bowel sounds. Absent: distended, tenderness, guarding, rebound, rigid Extremities exam: Present: normal inspection, full ROM, normal capillary refill. Absent: tenderness, pedal edema, joint swelling, calf tenderness Back exam: Present: normal inspection Neurological exam: Present: alert, oriented X3, CN II-XII intact Psychiatric exam: Present: normal affect, normal mood Skin exam: Present: warm, dry, intact, normal color. Absent: rash Stroke MDM - Lab Data Result diagrams: 04/12/22 16:32 04/12/22 16:32 Lab Results 04/12/22 04/12/22 04/12/22 Range/Units 16:08 16:32 16:32 WBC 8.0 (3.8-10.6) k/uL RBC 5.02 (4.30-5.90) m/uL Hgb 14.8 (13.0-17.5) gm/dL Hct 47.8 (39.0-53.0) % MCV 95.3 (80.0-100.0) fL MCH 29.6 (25.0-35.0) pg MCHC 31.0 (31.0-37.0) g/dL RDW 12.8 (11.5-15.5) % Plt Count 223 (150-450) k/uL MPV 8.2 Neutrophils % 61 % Lymphocytes % 26 % Monocytes % 7 % Eosinophils % 2 % Basophils % 1 % Neutrophils # 4.9 (1.3-7.7) k/uL Lymphocytes # 2.1 (1.0-4.8) k/uL Monocytes # 0.6 (0-1.0) k/uL Eosinophils # 0.1 (0-0.7) k/uL Basophils # 0.1 (0-0.2) k/uL PT 10.8 (9.0-12.0) sec INR 1.0 (<1.2) APTT 22.1 (22.0-30.0) sec Sodium (137-145) mmol/L Potassium (3.5-5.1) mmol/L Chloride (98-107) mmol/L Carbon Dioxide (22-30) mmol/L Anion Gap mmol/L BUN (9-20) mg/dL Creatinine (0.66-1.25) mg/dL Est GFR (CKD-EPI)AfAm (>60 ml/min/1.73 sqM) Est GFR (CKD-EPI)NonAf (>60 ml/min/1.73 sqM) Glucose (74-99) mg/dL POC Glucose (mg/dL) 78 (75-99) mg/dL POC Glu Radiology Transcriptionist ID [facility] Calcium (8.4-10.2) mg/dL Magnesium (1.6-2.3) mg/dL Total Bilirubin (0.2-1.3) mg/dL AST (17-59) U/L ALT (4-49) U/L Alkaline Phosphatase (38-126) U/L Troponin I (0.000-0.034) ng/mL Total Protein (6.3-8.2) g/dL Albumin (3.5-5.0) g/dL 04/12/22 04/12/22 04/12/22 Range/Units 16:32 16:32 17:51 WBC (3.8-10.6) k/uL RBC (4.30-5.90) m/uL Hgb (13.0-17.5) gm/dL Hct (39.0-53.0) % MCV (80.0-100.0) fL MCH (25.0-35.0) pg MCHC (31.0-37.0) g/dL RDW (11.5-15.5) % Plt Count (150-450) k/uL MPV Neutrophils % % Lymphocytes % % Monocytes % % Eosinophils % % Basophils % % Neutrophils # (1.3-7.7) k/uL Lymphocytes # (1.0-4.8) k/uL Monocytes # (0-1.0) k/uL Eosinophils # (0-0.7) k/uL Basophils # (0-0.2) k/uL PT (9.0-12.0) sec INR (<1.2) APTT (22.0-30.0) sec Sodium 140 (137-145) mmol/L Potassium 3.9 (3.5-5.1) mmol/L Chloride 108 H (98-107) mmol/L Carbon Dioxide 25 (22-30) mmol/L Anion Gap 7 mmol/L BUN 14 (9-20) mg/dL Creatinine 0.85 (0.66-1.25) mg/dL Est GFR (CKD-EPI)AfAm >90 (>60 ml/min/1.73 sqM) Est GFR (CKD-EPI)NonAf >90 (>60 ml/min/1.73 sqM) Glucose 35 L* (74-99) mg/dL POC Glucose (mg/dL) 58 L (75-99) mg/dL POC Glu Radiology Transcriptionist ID Samy Neri Calcium 8.5 (8.4-10.2) mg/dL Magnesium 2.1 (1.6-2.3) mg/dL Total Bilirubin 0.3 (0.2-1.3) mg/dL AST 18 (17-59) U/L ALT 18 (4-49) U/L Alkaline Phosphatase 104 (38-126) U/L Troponin I <0.012 (0.000-0.034) ng/mL Total Protein 6.4 (6.3-8.2) g/dL Albumin 3.7 (3.5-5.0) g/dL - NIH Stroke Scale 1a. Level of Consciousness: (0) alert 1b. LOC Questions: (0) answers correctly 1c. LOC Commands: (0) performs tasks correctly 2. Best Gaze: (0) normal 3. Visual: (0) no visual loss 4. Facial Palsy: (0) normal symmetrical movement 5a. Motor Arm Left: (0) no drift 5b. Motor Arm Right: (0) no drift 6a. Motor Leg Left: (0) no drift 6b. Motor Leg Right: (0) no drift 7. Limb Ataxia: (0) absent 8. Sensory: (0) normal 9. Best Language: (0) no aphasia 10. Dysarthria: (0) normal 11. Extinction/Inattention: (0) no abnormality - Thrombolytic Inclusion/Exclusion Thrombolytic Exclusion Criteria: Symptom Onset > 4.5 Hours - Medical Decision Making I did reevaluate patient several occasions he is feeling improved I did have one discussed with him and his family regarding the findings as well as with Dr. Pickering patient will be admitted for inpatient evaluation and treatment and neurological consultation. - Radiology Data Radiology results: report reviewed, image reviewed (Imaging reviewed as well as report no acute findings) - EKG Data -: EKG Interpreted by Me EKG shows normal: sinus rhythm (Normal sinus rhythm of 70 MO interval 166 QRS duration 101 QT since QTC 42/[address]-T wave changes) Past Medical History Past Medical History: Diabetes Mellitus, Hyperlipidemia, Hypertension, Prostate Disorder Additional Past Medical History / Comment(s): prostate cancer, low vitamin b 12, History of Any Multi-Drug Resistant Organisms: None Reported Past Surgical History: Prostate Surgery Past Anesthesia/Blood Transfusion Reactions: No Reported Reaction Additional Past Anesthesia/Blood Transfusion Reaction / Comment(s): never had anesthesia Past Psychological History: No Psychological Hx Reported Smoking Status: Current some day smoker Past Alcohol Use History: None Reported Past Drug Use History: None Reported - Past Family History Mother Family Medical History: No Reported History Course Vital Signs 04/12/22 04/12/22 04/12/22 15:51 16:00 16:30 Temperature 97.6 F 97.8 F Pulse Rate 72 73 74 Respiratory 16 20 18 Rate Blood Pressure 100/63 110/68 112/64 O2 Sat by Pulse 100 98 97 Oximetry 04/12/22 04/12/22 17:00 18:00 Temperature Pulse Rate 78 72 Respiratory 18 20 Rate Blood Pressure 116/68 115/68 O2 Sat by Pulse 97 97 Oximetry Disposition Clinical Impression: Transient cerebral ischemia Dis[facility] Condition: Fair Referrals: Shyam Pickering MD [Primary Care Provider] - 1-2 days Decision Date: 04/12/22 Decision Time: 18:30
--- NOTE | 2022-04-12 17:22 | CT ---
EXAMINATION TYPE: CT brain wo con DATE OF EXAM: 04/12/2022 COMPARISON: None HISTORY: Numbness right arm and facial numbness CT DLP: 1118.6 mGycm Automated exposure control for dose reduction was used. There is cerebral cortical atrophy. There is no mass effect or midline shift. No sign of intracranial hemorrhage. Calvarium is intact. No evidence of cerebral edema. IMPRESSION: Cerebral atrophy. No acute intracranial abnormality.
[2022-04-12 17:23] LABS: Basophils # (A) 0.1 k/uL (0-0.2); Basophils % (A) 1 %; Eosinophils # (A) 0.1 k/uL (0-0.7); Eosinophils % (A) 2 %; HCT 47.8 % (39.0-53.0); HGB 14.8 gm/dL (13.0-17.5); Lymphocytes # (A) 2.1 k/uL (1.0-4.8); Lymphocytes % (A) 26 %; MCH 29.6 pg (25.0-35.0); MCV 95.3 fL (80.0-100.0); Mean Platelet Volume 8.2; Monocytes # (A) 0.6 k/uL (0-1.0); Monocytes % (A) 7 %; Neutrophils # (A) 4.9 k/uL (1.3-7.7); Neutrophils % (A) 61 %; Platelet Count 223 k/uL (150-450); RBC 5.02 m/uL (4.30-5.90); RDW 12.8 % (11.5-15.5)
--- NOTE | 2022-04-12 17:23 | XR ---
EXAMINATION TYPE: XR chest 2V DATE OF EXAM: 04/12/2022 COMPARISON: NONE HISTORY: Altered mental status TECHNIQUE: 2 views FINDINGS: Heart is normal. Lungs are clear of infiltrate. No heart failure. There are no hilar masses . Costophrenic angles are clear. There are chest leads. IMPRESSION: No active cardiopulmonary disease. Normal heart.
[2022-04-12 17:27] LABS: Partial Thromboplastin Time 22.1 sec (22.0-30.0); Prothrombin Time 10.8 sec (9.0-12.0)
--- NOTE | 2022-04-12 17:39 | CT ---
EXAMINATION TYPE: CT angio head neck DATE OF EXAM: 04/12/2022 COMPARISON: None HISTORY: Right arm numbness and facial numbness CT DLP: 633.6 mGycm Automated exposure control for dose reduction was used. CONTRAST: Performed with IV Contrast, patient injected with 65 mL of Isovue 370. Images obtained from the aortic arch to the vertex of the brain with IV contrast. There are Three-D postprocessed images. There is normal branching pattern of the great vessels on the aortic arch. There is bilateral arteria l flow in the subclavian arteries. There is arterial flow in the common internal and extra carotid ar teries bilaterally. There is wide patency of the carotid artery bifurcations. There is arterial flow in both vertebral arteries. There is arterial flow in the vertebrobasilar artery system. No evidence of carotid or vertebral artery aneurysm or dissection. There is arterial flow in the intracranial internal carotid arteries. There is arterial flow in the a nterior middle and posterior cerebral arteries bilaterally. There is diminutive A1 segment of the rig ht anterior cerebral artery which is probably developmental. There is patency of the anterior communi cating artery. There is normal enhancement of the venous sinuses. IMPRESSION: Negative CT angiogram of the neck. Negative CT angiogram of the brain.
[2022-04-12 17:40] LABS: ALT 18 U/L (4-49); AST 18 U/L (17-59); African American GFR (CKD) >90 (>60 ml/min/1.73 sqM); Albumin 3.7 g/dL (3.5-5.0); Alkaline Phosphatase 104 U/L (38-126); Anion Gap 7 mmol/L; Blood Urea Nitrogen 14 mg/dL (9-20); Calcium 8.5 mg/dL (8.4-10.2); Carbon Dioxide 25 mmol/L (22-30); Chloride 108 mmol/L (98-107); Magnesium 2.1 mg/dL (1.6-2.3); Non-African American GFR(CKD) >90 (>60 ml/min/1.73 sqM); Potassium 3.9 mmol/L (3.5-5.1); Sodium 140 mmol/L (137-145); Total Bilirubin 0.3 mg/dL (0.2-1.3); Total Protein 6.4 g/dL (6.3-8.2)
[2022-04-12 17:51] LABS: Glucose 35 mg/dL (74-99)
[2022-04-12 17:53] LABS: Glucose,Whole Blood 58 mg/dL (75-99)
[2022-04-12] MEDS ORDERED: SODIUM CHLORIDE 0.9% 1,000 ML IV SCH (19:00)
[2022-04-12 19:07] LABS: Glucose,Whole Blood 80 mg/dL (75-99)
[2022-04-12 19:48] VITALS: RESP 18
[2022-04-12 20:41] LABS: Glucose,Whole Blood 71 mg/dL (75-99)
[2022-04-12] MEDS ORDERED: ATORVASTATIN 10 MG TAB PO SCH (21:00)
[2022-04-12] MEDS ORDERED: INSULN ASP PRT/INSULIN ASPART 100 UNIT/ML 10 ML VIAL SQ SCH (21:00)
[2022-04-12 21:42] LABS: Glucose,Whole Blood 93 mg/dL (75-99)
[2022-04-12 22:34] LABS: Glucose,Whole Blood 86 mg/dL (75-99)
[2022-04-12] MEDS ORDERED: DEXTROSE 50% SYRINGE 50 ML IVP STA (22:47)
[2022-04-12] MEDS: DEXTROSE 10% IN WATER 500 ML in EMPTY BAG 1 BAG IV SCH (23:00)
[2022-04-13 02:09] LABS: Glucose,Whole Blood 232 mg/dL (75-99)
[2022-04-13 07:01] LABS: Glucose,Whole Blood 179 mg/dL (75-99)
[2022-04-13 07:20] VITALS: BP 181/68; PULSE 51; TEMP 97.7
[2022-04-13] MEDS ORDERED: lisinopriL 10 MG TAB PO SCH (09:00)
[2022-04-13] MEDS ORDERED: CYANOCOBALAMIN 500 MCG TAB PO SCH (09:00)
[2022-04-13] MEDS ORDERED: INSULN ASP PRT/INSULIN ASPART 100 UNIT/ML 10 ML VIAL SQ SCH (09:00)
[2022-04-13] MEDS ORDERED: ASPIRIN 81 MG PO SCH (11:00)
[2022-04-13 11:21] LABS: Chol/HDL Ratio 3.15 Ratio; VLDL Calculation 14.98 mg/dL (5.00-40.00)
--- NOTE | 2022-04-13 11:29 | P.CNNES ---
History of Present Illness Consult date: 04/13/22 Requesting physician: Donald Mota Reason for Consult: stroke/tia History of Present Illness: This is a 66-year-old left-handed dominant gentleman with medical history of diabetes mellitus, hypertension, hyperlipidemia, vitamin B12 deficiency, prostate cancer who presented emergency department on 04/12/2022 for right fa cial numbness and right upper extremity numbness. Patient stated he noticed these symptoms around 7am but notified ED team that he wok-up at 5am with these symptoms. He felt it resolved by 7pm yesterday. Numbness involved the right medial cheek region and right arm. Denies of any neck pain, focal weakness, visual disturbance. He feels he is back to baseline. He double dose his insulin yesterday because of his numbness and was about to come to hospital to avoid missing his dose. Some other workup in our facility consisted of: Patient serum glucose is 35. His POC glucose initially is 78. repeated POC glucose is 58. CT of the head is reported as cerebral atrophy. No acute intracranial abnormality. I personally reviewed the CT of the head and there is no acute subacute ischemia and there is no temporal hemorrhage. CT angiography of the head and neck was reported as negative. EKG is reported as sinus rhythm. Normal EKG. I personally reviewed the CBC and chemistry panel Review of Systems Review of system: The 12 point system was reviewed and apparent positive and negative per HPI. Past Medical History Past Medical History: Diabetes Mellitus, Hyperlipidemia, Hypertension, Prostate Disorder Additional Past Medical History / Comment(s): prostate cancer, low vitamin b 12, History of Any Multi-Drug Resistant Organisms: None Reported Past Surgical History: Prostate Surgery Past Anesthesia/Blood Transfusion Reactions: No Reported Reaction Additional Past Anesthesia/Blood Transfusion Reaction / Comment(s): never had anesthesia Past Psychological History: No Psychological Hx Reported Smoking Status: Current some day smoker Past Alcohol Use History: None Reported Additional Past Alcohol Use History / Comment(s): has smoked for 30 yrs , Past Drug Use History: None Reported - Past Family History Mother Family Medical History: No Reported History Medications and Allergies Home Medications Medication Instructions Recorded Confirmed Type Atorvastatin [Lipitor] 10 mg PO HS 12/27/20 04/12/22 History Insuln Asp Prt/Insulin Aspart 70 unit SQ HS 12/27/20 04/12/22 History [NovoLOG MIX 70-30 VIAL] Insuln Asp Prt/Insulin Aspart 90 unit SQ DAILY 12/27/20 04/12/22 History [NovoLOG MIX 70-30 VIAL] lisinopriL [Zestril] 10 mg PO DAILY 12/27/20 04/12/22 History Cyanocobalamin [Vitamin B-12] 500 mcg PO DAILY 04/12/22 04/12/22 History Allergies Allergy/AdvReac Type Severity Reaction Status Date / Time No Known Allergies Allergy Verified 04/12/22 17:41 Physical Examination - Vital Signs Vital Signs: Vital Signs Temp Pulse Pulse Resp BP BP BP 04/13/22 07:00 97.7 F 51 L 18 181/68 04/13/22 02:05 97.8 F 70 18 169/75 04/12/22 20:00 98.3 F 52 L 18 160/77 04/12/22 19:47 97.2 F L 73 18 116/67 04/12/22 19:00 97.0 F L 76 20 118/68 04/12/22 18:00 72 20 115/68 04/12/22 17:00 78 18 116/68 04/12/22 16:30 74 18 112/64 04/12/22 16:00 97.8 F 73 20 110/68 04/12/22 15:51 97.6 F 72 16 100/63 Pulse Ox 04/13/22 07:00 98 04/13/22 02:05 97 04/12/22 20:00 100 04/12/22 19:47 97 04/12/22 19:00 96 04/12/22 18:00 97 04/12/22 17:00 97 04/12/22 16:30 97 04/12/22 16:00 98 04/12/22 15:51 100 Intake and Output 04/12/22 04/13/22 04/13/22 22:59 06:59 14:59 Intake Total 500 Balance 500 Intake: Oral 500 Other: # Voids 1 Weight 88.451 kg GENERAL: The patient is lying in bed and is not in acute distress. CHEST: The heart rate is regular rate rhythm. No murmurs to auscultation. No carotid bruit bilaterally. LUNG: Clear to auscultation bilaterally no wheezing noted throughout. Not labor ed breathing. ABDOMEN/GI: Bowel sounds present in all 4 quadrants. No tenderness to palpation throughout. NEUROLOGICAL: Higher mental function: The patient is awake, alert, oriented to self, place and time. Patient is following commands. No aphasia and no neglect. Cranial nerves: The pupils are round, equal and reactive to light and accommodation. Visual oates are full to confrontation throughout. Extraocular movement is intact no nystagmus is noted. Facial sensation is normal to touch throughout. The facial strength is normal throughout. Hearing is normal bilaterally to hand rub. Tongue is midline and moved [id number] without any difficulty. No dysarthria is noted. Shoulder shrug is normal bilaterally. Motor: The strength is 5 over 5 throughout. Normal tone and bulk. Cerebellum: Normal finger to nose bilaterally. Sensation: Sensation is normal to touch throughout. Reflexes (right/left): 1+ throughout. Plantars are downgoing bilaterally. Results - Laboratory Findings CBC and BMP: 04/12/22 16:32 04/12/22 16:32 Abnormal Lab Findings: Abnormal Labs 04/12/22 04/12/22 04/12/22 16:32 17:51 20:29 Chloride 108 H Glucose 35 L* POC Glucose (mg/dL) 58 L 71 L 04/13/22 04/13/22 02:07 06:59 Chloride Glucose POC Glucose (mg/dL) 232 H 179 H Assessment and Plan Assessment: Acute transient Numbness (right cheek and arm): Hypoglycemia can mimic stroke- like symptoms. As well Vitamin B12 deficiency can give numbness. Cannot exclude TIA Hypoglycemia as low as 30s Vitamin B12 deficiency 160 (on 12/2020. Normal is 200-944) Diabetes mellitus (HbA1c is 8.8 on 12/2021) History hypertension History of prostate cancer Plan: Vitamin B12 deficiency 160 (on 12/2020. Normal is 200-944). Currently patient is resumed on his home Vitamin B12 500mcg daily. Recommend repeat Vitamin B12 level, folate (patient states he wants it done as outpatient). Recommend avoid hypoglycemic events and will defer management to primary team. Lipid panel is ordered by ED team. I started the patient on ASA 81mg daily and is currently on Lipitor 10mg qhs for secondary stroke prophylaxis. No further imaging needed from neurological perspective. If no further hypogl ycemia or vitamin deficiency consider MRI Brain as outpatient if continues to have symptoms. Recommend patient to follow-up with neurologist as outpatient within 2 weeks. The plan is discussed with patient and his nurse. No additional testing needed. Thank you for the consultation. Reji Ruiz M.D. Neuro-Hospitalist Time with Patient: Greater than 30
[2022-04-13] MEDS: DEXTROSE 10% IN WATER 500 ML in EMPTY BAG 1 BAG IV SCH (12:53)
--- NOTE | 2022-04-13 19:24 | HP ---
HISTORY AND PHYSICAL CHIEF COMPLAINT: Hypesthesias of the right side of the face and right arm. HISTORY OF PRESENT ILLNESS: This is another admission for this 66-year-old white male who has had a long history of poorly controlled type 2 diabetes mellitus. He developed some disease of the right side of his face and right arm and came to the emergency room, where his symptoms were improving. He denied any headaches, change in the vision or the hearing, difficulty speaking, etc. He was admitted as a TIA. REVIEW OF SYSTEMS: He has had no other complaints. He has had no chest pain, palpitations, syncope, etc. Past medical history, family history, and personal and social histories reveal that he is NOT ALLERGIC TO ANY MEDICATION. He is on NovoLog Mix 70/30, 90 units in the morning and 70 at night. He is on atorvastatin 10 mg once a day, lisinopril 10 mg once a day. The remainder of his history is unremarkable. He has had a history of prostate carcinoma treated with surgery. He does still smoke. The remainder of his history is unremarkable. In the emergency room he was hypoglycemic, which could have been part of the issue. PHYSICAL EXAMINATION: Blood pressure 190/80, pulse 52, respirations of 18, and he is afebrile. In general he appears to be well developed, well nourished, in no acute distress. Skin color is normal. Skin is warm and dry. Lymph nodes are not enlarged. Head, ears, eyes, nose, mouth and throat are normal. Neck veins are not distended. Thyroid is not enlarged. Carotids are normal. Chest is clear. Cardiac exam demonstrates sinus rhythm and no murmurs or extra sounds. Abdomen is soft, nontender without any visceromegaly or masses. Bowel sounds are present. Extremities are normal. Neurologically he is intact. Sensorimotor exam is normal. Cranial nerves are intact from 12 to 12. The hypesthesias are gone. He is admitted to the hospital with the diagnoses: 1. Left-sided transient ischemic attack. 2. History of poorly controlled insulin-dependent diabetes mellitus. 3. History of hypertension. 4. History of chronic obstructive pulmonary disease. 5. History of carcinoma of the prostate. PLAN: 1. Bedrest. 2. IV fluids. 3. Frequent monitoring of his neurologic status. 4. Neurology consult. 5. CTA of the head and neck. MMODL / IJN: [id number] /
--- NOTE | 2022-04-13 19:28 | DS ---
DISCHARGE SUMMARY CHIEF COMPLAINT: Hypesthesias of the right side of the face and right arm. HISTORY OF PRESENT ILLNESS AND PHYSICAL EXAMINATION: Details of this man's history and physical can be found in the initial workup. LABORATORY STUDIES: While he was in the hospital he had laboratory studies, details of which can be found in the laboratory section of his chart. COURSE IN THE HOSPITAL: After admission he was placed on bedrest and started on intravenous fluids and frequent monitoring of his neurologic status and vital signs. The following day, his symptoms were gone. His sugar was up as well. It was felt that he could go home, and he will be seen in the office in several days. His insulin will be dropped back. FINAL DIAGNOSIS: 1. Left-sided transient ischemic attack. 2. Hypoglycemia. 3. Poorly controlled insulin-dependent diabetes mellitus. 4. Chronic obstructive pulmonary disease. OPERATIONS: None. CONSULTATION: Neurology. He is improved. MMCARLOS EDUARDOL / PAOLA: [id number] /
== END 2022-04-13 14:00 | disposition home or self-care (01) ==
LOC: EC 15:50 → 6NMEDSUR 18:46
PROVIDERS: ADMIT Family Medicine; ATTEND Family Medicine
DX: G45.9 Transient cerebral ischemic attack, unspecified (principal); E11.649 Type 2 diabetes mellitus with hypoglycemia without coma; J44.9 Chronic obstructive pulmonary disease, unspecified; I10 Essential (primary) hypertension; E78.5 Hyperlipidemia, unspecified; E53.8 Deficiency of other specified B group vitamins; F17.200 Nicotine dependence, unspecified, uncomplicated; Z79.4 Long term (current) use of insulin; Z79.899 Other long term (current) drug therapy; Z85.46 Personal history of malignant neoplasm of prostate
CPT/HCPCS: 96374; 99285; 36415; 93005; 80061; 80053; 83735; 84484; 85025; 85610; 85730; 71046; 70496; 70450; 70498; G0378 ×2; Q9967

== ENCOUNTER → 2023-12-28 | Outpatient (CLI) | payer MEDICARE | END | disposition home or self-care (01) | LOC: LABWHC1 07:47 | PROVIDERS: ATTEND Urology | DX: C61 Malignant neoplasm of prostate (principal) | CPT/HCPCS: 36415; 84153 ==

== ENCOUNTER → 2024-04-26 | Outpatient (CLI) | payer MEDICARE, OTHER ==
--- NOTE | 2024-04-26 21:47 | US ---
EXAMINATION TYPE: US abdomen complete DATE OF EXAM: 04/26/2024 COMPARISON: NONE CLINICAL INDICATION: Male, 68 years old with history of E11.9 diabetes R53.83 fatigue Z87.891 hx smok ing; DM, Smoker TECHNIQUE: Multiple sonographic images of the abdomen are obtained. FINDINGS: EXAM MEASUREMENTS: Liver Length: 12.4 cm Gallbladder Wall: 0.2 cm CBD: 0.7 cm Spleen: 8.9 cm Right Kidney: 11.8 x 5.2 x 5.5 cm Left Kidney: 13.1 x 5.7 x 4.9 cm QC LAB TECHNICIAN NOTES: Pancreas: Obscured by bowel gas Liver: wnl Gallbladder: wnl Evidence for sonographic Wolf's sign: No CBD: wnl Spleen: wnl Right Kidney: Possible echogenic lesion mid/medial= 0.9 x 0.6 x 0.9 cm Left Kidney: Possible double collecting system Upper IVC: wnl Abd Aorta: Proximal and mid portions gassed out, distal portion appeared wnl The liver is homogenous without focal lesion. The intrahepatic portion of the IVC is within normal l imits. The proximal and mid portions of the abdominal aorta are obscured by overlying bowel gas. The distal portion appears within normal limits. There is no evidence of cholelithiasis. Common bile juliann t is unremarkable. The pancreas is obscured by overlying bowel gas. The spleen is unremarkable. Ki dneys are symmetric and free of hydronephrosis. Echogenic region within the mid medial right kidney peripherally most consistent with a benign junctional parenchymal defect. Duplex left kidney. No susp icious renal lesion. IMPRESSION: 1. No acute process. 2. Duplex left kidney.
== END | disposition home or self-care (01) ==
LOC: RADUSWWP 08:35
PROVIDERS: ATTEND Family Medicine
DX: E11.9 Type 2 diabetes mellitus without complications (principal); R53.83 Other fatigue; Q63.0 Accessory kidney; Z87.891 Personal history of nicotine dependence
CPT/HCPCS: 76700

== ENCOUNTER → 2025-01-08 | Outpatient (CLI) | payer MEDICARE, OTHER | END | disposition home or self-care (01) | LOC: LABWHC1 12:50 | PROVIDERS: ATTEND Urology | DX: C61 Malignant neoplasm of prostate (principal) | CPT/HCPCS: 36415; 84153 ==